=== PATIENT | female | born 1960 | race Caucasian/White ===

== ENCOUNTER → 2017-09-24 | Outpatient (CLI) | payer OTHER | LOC: M PLARAD 13:35 | DX: M25.512 Pain in left shoulder (principal) ==

== ENCOUNTER → 2018-02-21 | Outpatient (REF) | payer OTHER ==
[2018-02-21 13:45] LABS: BACTERIA, URINE AUTO 1+ (NEGATIVE); MUCUS, URINE SMALL (NEGATIVE); RBC, URINE AUTO 1 /HPF (0-3); SQUAMOUS EPITHELIAL CELL UR AU 3 /HPF (0-6); WBC, URINE AUTO 2 /HPF (0-3)
== END ==
LOC: M SMT 13:17
DX: R10.30 Lower abdominal pain, unspecified (principal)

== ENCOUNTER → 2018-08-11 | Outpatient (CLI) | payer OTHER ==
[~2018-08-11] MED LIST: ABIL10TA; ABIL10TA OR; AMBI10TA; AMBI10TA OR; CETI10TA OR; COMBVENT; COMBVENT INH; COUM2.5T17 PO; CYMB1CAP5 OR; DETR4CAP; DETR4CAP OR; FLEXERIL; GEODON PO; LATUDA PO; LODINE; NASOCORT; NEXI1CAP3; NEXI1CAP3 OR; NICO14DI3 TD; OMEPPOW18 PO; PROZ40CA; PROZ40CA OR; SOMA350T PO; TIZA2CAP PO; TRAM50TA2; TRAZ150T; TRAZ150T OR; TYLE167L PO; VICO5TAB; VICO5TAB OR; VITAMIN D50000 UNT OR; VOLT1GEL TOP; ZIPR80CAP; ZIPR80CAP OR; ZITHTAB OR
--- NOTE | 2018-08-11 13:50 | REP ---
CT chest without contrast: Low-dose screening exam. History: Personal history of nicotine dependence. Lung cancer screening. No comparison chest imaging. CT findings: Digital preliminary biometric screener radiograph is unremarkable. There is a surgical clip in the right upper quadrant of the abdomen. There are mild emphysematous changes in the upper lung zones. There is a benign calcified granuloma in the right mid lung zone on page 40 of 101 of today's study. There is a tiny 3 mm noncalcified nodule in the right lung apex on page 12. No other significant pulmonary nodule is appreciated. There are a few tiny areas of scattered subpleural fibrosis. Scan is otherwise unremarkable. Impression: Lung RADS category II benign appearing findings. Recommend repeat screening study of 1 year. Electronically Signed by Johan Velez MD 08/11/2018 01:42 P
== END ==
LOC: M RAD 13:05
PROVIDERS: ATTEND Physician Assistant
DX: Z12.2 Encounter for screening for malignant neoplasm of respiratory organs (principal); F17.218 Nicotine dependence, cigarettes, with other nicotine-induced disorders; R91.1 Solitary pulmonary nodule; J84.10 Pulmonary fibrosis, unspecified

== ENCOUNTER → 2018-10-04 | Outpatient (CLI) | payer OTHER ==
[~2018-10-04] MED LIST changes: +METHACHOLINE KIT (J7674) INH ONE
== END ==
LOC: M CARPUL 13:28
PROVIDERS: ATTEND Physician Assistant
DX: R06.00 Dyspnea, unspecified (principal)

== ENCOUNTER → 2018-10-13 | Outpatient (CLI) | payer OTHER ==
[~2018-10-13] MED LIST changes: -METHACHOLINE KIT (J7674) INH ONE
--- NOTE | 2018-10-13 16:23 | REP ---
TRIPLE PHASE BONE SCAN OF PELVIS AND BILATERAL HIPS: Following the intravenous administration of 21.9 mCi of technetium 99m MDP, the patient's pelvis and hips are imaged in the anterior and posterior projections in the flow phase, showing symmetrical blood flow. Immediate blood pool and 2.5 hour delayed images are performed in multiple projections. No abnormal blood pooling. Delayed images show photopenic areas in the region of each proximal femur compatible with metallic prostheses bilaterally. There is mild increased uptake of radiotracer in the left proximal femur, specifically in the region of the greater trochanter and lesser trochanter. I cannot exclude loosening of this prosthesis. Alternatively, this could represent persistent postsurgical activity. Electronically Signed by Pino Browning MD 10/17/2018 04:58 P
== END ==
LOC: M RAD 09:37
PROVIDERS: ATTEND Physician Assistant
DX: Z96.642 Presence of left artificial hip joint (principal)
CPT/HCPCS: 78315; A9503

== ENCOUNTER → 2018-12-01 | Outpatient (CLI) | payer OTHER ==
[~2018-12-01] MED LIST changes: +METHACHOLINE KIT (J7674) INH ONE
--- NOTE | 2018-12-01 09:19 | PFTRPT ---
Height: 60.00 Inches Weight: 208.00 Lbs BSA: 1.90 Diagnosis: R06.00 DATE OF PROCEDURE: 12/01/2018 ORDERED BY: Vasyl Shields PA-C INTERPRETATION: Study of excellent technical quality. Under protocol, methacholine was administered. At a dose of 2.5 mg (13.875 CDUs), a 24% decline in the FEV1 was noted. PC of 1.12 is significant. Flow rates did return to baseline post bronchodilator administration. IMPRESSION: Positive methacholine challenge study. MTDD
== END ==
LOC: M CARPUL 11-03 07:12
PROVIDERS: ATTEND Physician Assistant
DX: R06.00 Dyspnea, unspecified (principal); Z53.29 Procedure and treatment not carried out because of patient's decision for other reasons
CPT/HCPCS: 94070; 95070; J7674

== ENCOUNTER → 2019-05-31 | Outpatient (CLI) | payer OTHER ==
[~2019-05-31] MED LIST changes: -METHACHOLINE KIT (J7674) INH ONE
--- NOTE | 2019-06-01 07:35 | ECGEPIP ---
[facility] [place] Test Date: 2019-05-31 Pat Name: BLAS MOODY Department: Room: - Gender: Female Segment Producer: RF : [id number] Requested By: Adonis Dodge Order Number: [id number] Reading MD: Sergio Modi Measurements Intervals [place] Rate: 91 P: 84 [place]: 137 QRS: 85 QRSD: 94 T: 30 QT: 360 QTc: 444 Interpretive Statements Normal sinus rhythm Nonspecific T wave abnormality Comparison tracing not on file Electronically Signed on 06-01-2019 7:35:26 EST by Sergio Modi
== END ==
LOC: M EKG 14:16
PROVIDERS: ATTEND Orthopaedic Surgery
DX: Z01.810 Encounter for preprocedural cardiovascular examination (principal); S83.281A Other tear of lateral meniscus, current injury, right knee, initial encounter; X58.XXXA Exposure to other specified factors, initial encounter; Y92.9 Unspecified place or not applicable

== ENCOUNTER → 2020-01-05 | Outpatient (CLI) | payer OTHER ==
--- NOTE | 2020-02-02 16:26 | REP ---
CT CHEST WITHOUT CONTRAST HISTORY: Nicotine dependence. Low-dose screening exam. COMPARISON: CT study of the chest from 08/11/2018. CT FINDINGS: The previously noted calcified granuloma in the right parahilar region, right upper lobe, is again seen unchanged. The small noncalcified 3-mm nodule noted previously in the right apex is not apparent. There is minimal subpleural fibrosis again noted on the left unchanged. No new pulmonary nodule is appreciated. IMPRESSION: Lung-RADS Category 1 findings. Repeat screening exam suggested in one year. MTDD
== END ==
LOC: M RAD 08:25
PROVIDERS: ATTEND Physician Assistant
DX: F17.218 Nicotine dependence, cigarettes, with other nicotine-induced disorders (principal)

== ENCOUNTER → 2020-04-06 | Outpatient (CLI) | payer OTHER | LOC: M LABSMTC 10:57 | PROVIDERS: ATTEND Orthopaedic Surgery | DX: Z01.812 Encounter for preprocedural laboratory examination (principal); Z20.828 Contact with and (suspected) exposure to other viral communicable diseases ==

== ENCOUNTER → 2020-12-30 | Outpatient (CLI) | payer OTHER ==
--- NOTE | 2020-12-30 13:52 | REP ---
INDICATION: SOLITARY PULMONARY NODULE COMPARISON: 01/05/2020, 08/11/2018 TECHNIQUE: Axial noncontrast images from the thoracic inlet to the upper abdomen with coronal and sagittal reformations. This CT examination was performed using the following dose reduction techniques: Automated exposure control, adjustment of mA and/or kv according to the patient's size, and use of iterative reconstruction technique. FINDINGS: Bilateral lung pires are well aerated and relatively clear. No acute consolidation, suspicious nodule or mass lesion noted. Stable 2 mm calcified nodule in the right upper lobe (series 3, image 47) again identified. Previously noted vague non solid nodule in the right apex has resolved no effusion. No pneumothorax. Tracheobronchial tree is patent.. No obvious adenopathy. Thoracic aorta, pulmonary vasculature, and heart/pericardium are normal. Surrounding musculoskeletal structures without acute osseous abnormality. IMPRESSION: Stable calcified nodule. No acute mediastinal or pleuroparenchymal process appreciated. <Electronically signed by Tejas Navarro > 12/30/20 [id number]
== END ==
LOC: M PLAIMG 13:06
PROVIDERS: ATTEND Internal Medicine Pulmonary Disease
DX: R91.1 Solitary pulmonary nodule (principal)

== ENCOUNTER → 2021-11-10 | Outpatient (CLI) | payer OTHER ==
[2021-11-10 10:54] LABS: HEMATOCRIT 44.7 % (36.0-47.0); HEMOGLOBIN 14.1 g/dl (12.0-15.5); MEAN CORPUSCULAR HEMOGLOBIN 27.9 pg (27.0-33.0); MEAN CORPUSCULAR HGB CONC 31.5 g/dl (32.0-36.5); MEAN CORPUSCULAR VOLUME 88.3 fl (80.0-96.0); PLATELET COUNT, AUTOMATED 231 10^3/uL (150-450); RED BLOOD COUNT 5.06 10^6/uL (4.00-5.40); WHITE BLOOD COUNT 8.9 10^3/uL (4.0-10.0)
[2021-11-10 11:05] LABS: INR 0.94
[2021-11-10 11:12] LABS: ALBUMIN 3.7 GM/DL (3.2-5.2); ALT/SGPT 27 U/L (12-78); BILIRUBIN,TOTAL 0.3 MG/DL (0.2-1.0); BLOOD UREA NITROGEN 25 MG/DL (7-18); CALCIUM LEVEL 9.1 MG/DL (8.5-10.1); CARBON DIOXIDE LEVEL 29 MEQ/L (21-32); CHLORIDE LEVEL 110 MEQ/L (98-107); CREATININE FOR GFR 0.82 MG/DL (0.55-1.30); GLOMERULAR FILTRATION RATE > 60.0 (>51); GLUCOSE, FASTING 102 MG/DL (70-100); POTASSIUM SERUM 4.7 MEQ/L (3.5-5.1); SODIUM LEVEL 143 MEQ/L (136-145)
[2021-11-10 11:14] LABS: ERYTHROCYTE SEDIMENTATION RATE 5 mm/hr (0-30)
== END ==
LOC: M RAD 10:03
PROVIDERS: ATTEND Orthopaedic Surgery
DX: M17.11 Unilateral primary osteoarthritis, right knee (principal); R94.31 Abnormal electrocardiogram [ECG] [EKG]

== ENCOUNTER → 2023-06-28 | Outpatient (CLI) | payer OTHER | LOC: M RAD 11:01 | PROVIDERS: ATTEND Physician Assistant | DX: H73.892 Other specified disorders of tympanic membrane, left ear (principal); H71.92 Unspecified cholesteatoma, left ear; H70.92 Unspecified mastoiditis, left ear ==